=== PATIENT | female | born 1980 | race Caucasian/White ===

== ENCOUNTER 2025-07-08 14:29 | Outpatient (CLI) | payer OTHER | END 2025-07-08 14:30 | disposition home or self-care (01) | LOC: CSHMAMMO 14:29 | PROVIDERS: ATTEND Obstetrics & Gynecology | DX: Z12.31 Encounter for screening mammogram for malignant neoplasm of breast (principal); N64.89 Other specified disorders of breast; Z80.3 Family history of malignant neoplasm of breast | CPT/HCPCS: 77063; 77067 ==

== ENCOUNTER 2025-07-16 09:47 | Outpatient (CLI) | payer OTHER | END 2025-07-16 09:48 | disposition home or self-care (01) | LOC: CSHMAMMO 09:47 | PROVIDERS: ATTEND Obstetrics & Gynecology | DX: N64.89 Other specified disorders of breast (principal) | CPT/HCPCS: G0279 ==